=== PATIENT | male | born 1985 | race Caucasian/White ===

== ENCOUNTER 2024-06-18 07:01 | Emergency (ER) | payer BC, SELFPAY ==
[2024-06-18] VITALS (22 sets, daily range): BP systolic 135–168; BP diastolic 89–112; PULSE 83–106; RESP 12–25; TEMP 36.4–36.7; O2SAT 94–100
--- NOTE | ~2024-06-18 | CT_ITS ---
Clinical Indication: Hypertension, back pain, chest pain, dissection CT Scan of the Chest, Abdomen, and Pelvis with Contrast: Technique: Contiguous sections were acquired throughout the chest, abdomen, and pelvis after intraven ous administration of 100 cc of Omnipaque 350. Dose reduction technique was used on this scan by juli cardenasing automated exposure control and iterative reconstruction technique. The dose-length product (DL P) was 2015.81 mGy-cm. Findings: There is no evidence of any significant mediastinal, hilar or axillary lymphadenopathy. The mediastin al soft tissues appear normal. No aortic aneurysm or dissection seen. There is no evidence of pleural or pericardial effusion. The lungs are clear. No pulmonary nodules or infiltrates are noted. There is diffuse hepatic steatosis. The spleen, pancreas, gallbladder, adrenals and left kidney are w ithin normal limits. Status post right nephrectomy. No evidence of aortic aneurysm or dissection. No lymphadenopathy. No bowel obstruction or bowel wall thickening. There is no evidence to suggest acute appendicitis. Urinary bladder is unremarkable. No pelvic mass seen. No ascites. Bilateral L5 pars interarticularis defects are present, without significant subluxation. Impression: No acute abnormality. No aortic aneurysm or dissection. Diffuse hepatic steatosis. Bilateral L5 pars interarticularis defects. Status post right nephrectomy. Reviewed, dictated and finalized at location . Impression: No acute abnormality. No aortic aneurysm or dissection. Diffuse hepatic steatosis. Bilateral L5 pars interarticularis defects. Status post right nephrectomy.
--- NOTE | ~2024-06-18 | XR_ITS ---
EXAMINATION: XR chest 2V DATE: 06/18/2024 07:55 INDICATION: Midsternal chest pain radiating to the left arm TECHNIQUE: PA and lateral views of the chest were obtained. COMPARISON: Chest CT dated 06/18/2024 FINDINGS: The lungs are clear with no focal airspace opacities, pulmonary edema, pleural effusion or pneumothor ax. The cardiomediastinal silhouette is normal. Visualized bones and soft tissues are unremarkable. IMPRESSION: 1. No acute cardiopulmonary disease. Reviewed, dictated and finalized at location B.
--- NOTE | 2024-06-18 07:03 | ECG_ITS ---
Test Date: 2024-06-18 07:11:06 Measurements Intervals [place] Rate: 101 P: -21 MN: 151 QRS: 105 QRSD: 110 T: -31 QT: 329 QTc: 426 Interpretive Statements SINUS TACHYCARDIA RIGHT AXIS DEVIATION DELAYED PRECORDIAL R/S TRANSITION BORDERLINE ST-T WAVE ABNORMALITY- INFERIOR LEADS BASELINE ARTIFACT- I, III, AVR, AVL, AVF, V1, V6 BORDERLINE ECG No previous ECG available for comparison Electronically Signed On 06-18-2024 08:08:41 CDT by Dayo Penaloza D.O.
[2024-06-18] MEDS: ASPIRIN 81 MG CHEWABLE TABLET 324 MG PO (07:12)
[2024-06-18 07:23] LABS: Basophils Absolute Auto 0.1 K/mm3 (0.0-0.1); Basophils Percent Auto 0.9 % (0.2-1.2); Eosinophils Absolute Auto 0.2 K/mm3 (0-0.3); Eosinophils Percent Auto 2.8 % (0-4.4); Hematocrit 48.3 % (42.0-52.0); Hemoglobin 16.6 g/dL (14.0-18.0); Immature Granulocyte Absolute 0.03 K/mm3 (0.00-0.031); Immature Granulocyte Percent A 0.4 % (0-0.5); Lymphocytes Absolute Auto 2.62 K/mm3 (0.9-3.2); Lymphocytes Percent Auto 37.2 % (18.3-44.2); Mean Corpuscular HGB Conc 34.4 g/dl (32-36); Mean Corpuscular Hemoglobin 32.1 pg (26-34); Mean Corpuscular Volume 93.4 fl (80-100); Mean Platelet Volume 8.9 fl (7.4-10.4); Monocytes Absolute Auto 0.8 K/mm3 (0.1-0.6); Monocytes Percent Auto 10.7 % (2.6-8.5); Neutrophils Absolute Auto 3.4 K/mm3 (1.3-6.7); Platelet Count Result 280 k/mm3 (150-375); Red Blood Count 5.17 M/mm3 (4.6-6.20); Red Cell Distribution Width 12.3 % (11.5-14.5)
--- NOTE | 2024-06-18 07:30 | ED.CHESTPAIN ---
HPI - Chest Pain General Chief Complaint: Chest Pain Stated Complaint: Chest pain, lightheaded, left arm pain Time Seen by Provider: 06/18/24 07:05 History of Present Illness HPI narrative: 38-year-old male presented to the emergency department for evaluation for some back pain that radiated into his left arm chest and jaw. Patient states yesterday he was doing a lot of work on the house such as replacing ceiling fans and baseboards. Patient states that he did not have any exertional chest pain or shortness of breath with this yesterday. Patient states while he was lying in bed he had onset of lightheaded dizziness and the onset of the pain that radiated is referred back to his chest to his arm and jaw. Patient is not diabetic denies any prior history of high cholesterol hypertension. Patient states he has had a negative stress test. Patient denies any prior history of IA. Related Data Allergies Allergy/AdvReac Type Severity Reaction Status Date / Time morphine Allergy Severe Anaphylactic Verified 06/18/24 07:10 Shock Review of Systems Review of Systems: All systems reviewed & are unremarkable except as noted in HPI and below Exam Narrative: APPEARANCE: Well appearing, no pain, no distress, well-nourished. HEAD: normocephalic, atraumatic. EYES: PERRLA/EOMI, conjunctivae clear. NOSE: Normal no drainage EARS:TMS clear with good light reflex. THROAT: Pharynx clear, no exudate. NECK: Supple. No adenopathy, no masses. RESPIRATORY: Airway patent, respirations nonlabored. Clear to auscultation bilaterally, no rales, rhonchi, wheezing. CARDIOVASCULAR: Regular rate and rhythm without murmurs rubs or gallops. ABDOMINAL: Soft, nontender, nondistended, normal bowel sounds MUSCULOSKELETAL: Moves all extremities. Strength/ROM intact, No edema, No calf tenderness. NEURO: Alert. Cranial nerves II through XII intact. Good gait. Good coordination SKIN: Warm, dry. Normal Color Course Course Emergency Course: Patient was discharged home with instructions for close outpatient follow-up Vital Signs Vital signs: Vital Signs Temperature 97.6 F 06/18/24 07:07 Pulse Rate 106 H 06/18/24 07:07 Respiratory Rate 18 06/18/24 07:07 Blood Pressure 168/104 H 06/18/24 07:07 Pulse Oximetry 99 06/18/24 07:07 Temperature 98.1 F 06/18/24 10:56 Pulse Rate 88 06/18/24 10:56 Respiratory Rate 20 06/18/24 10:56 Blood Pressure 139/95 H 06/18/24 10:56 Pulse Oximetry 100 06/18/24 10:56 Oxygen Delivery Room Air 06/18/24 07:16 MDM - Chest Pain MDM Narrative Medical decision making narrative: A 38-year-old male presents to the emergency department for evaluation for back pain. Patient had negative serial troponins negative serial EKG. CTA showed no evidence of dissection. Low concern for ACS. Patient was updated on the results of his workup. Patient was comfortable the plan for discharge and close follow-up. Differential Diagnosis Differential diagnosis: Likely fracture of rib, pneumothorax, unstable angina pectoris, atypical chest pain, st elevation myocardial infarction, costochondritis, chest pain and biliary colic Lab Data Attestation: I reviewed the patient's lab results. 06/18/24 07:15 06/18/24 07:15 Labs: Lab Results 06/18/24 06/18/24 Range/Units 07:15 10:01 WBC 7.0 (4.5-10.0) K/mm3 RBC 5.17 (4.6-6.20) M/mm3 Hgb 16.6 (14.0-18.0) g/dL Hct 48.3 (42.0-52.0) % MCV 93.4 (80-100) fl MCH 32.1 (26-34) pg MCHC 34.4 (32-36) g/dl RDW 12.3 (11.5-14.5) % Plt Count 280 (150-375) k/mm3 MPV 8.9 (7.4-10.4) fl Immature Gran % (Auto) 0.4 (0-0.5) % Neut % (Auto) 48.0 (45.5-73.1) % Lymph % (Auto) 37.2 (18.3-44.2) % Heard % (Auto) 10.7 H (2.6-8.5) % Eos % (Auto) 2.8 (0-4.4) % Baso % (Auto) 0.9 (0.2-1.2) % Lymph # (Auto) 2.62 (0.9-3.2) K/mm3 Heard # (Auto) 0.8 H (0.1-0.6) K/mm3 Eos # (Auto) 0.2 (0-0.3) K/mm
[2024-06-18 07:34] LABS: Alanine Aminotransferase 174 U/L (6-50); Albumin Level 4.9 g/dL (3.5-5.1); Alkaline Phosphatase 67 U/L (38-126); Anion Gap 13 mmol/L (4-12); Aspartate Amino Transferase 131 U/L (17-59); Bilirubin,Total 0.9 mg/dL (0.2-1.3); Blood Urea Nitrogen 8 mg/dL (9-20); Carbon Dioxide 24 mmol/L (22-30); Chloride 100 mmol/L (98-107); Estimated CRCL calculation 127 ml/min; Estimated Glomerular Filt Rate > 60; Glucose 127 mg/dL (65-110); Lipase 102 U/L (23-300); Potassium 4.2 mmol/L (3.4-5.0); Prothrombin Time 13.5 Seconds (11.1-14.7); Sodium 137 mmol/L (137-145)
[2024-06-18 07:35] LABS: Partial Thromboplastin Time 28.5 Seconds (22.3-36.8)
[2024-06-18 07:46] LABS: Troponin I < 0.012 ng/mL (0.000-0.034)
[2024-06-18] MEDS: HYDROmorphone HCL INJ (*CRX) 1 MG/ML SYR 0.5 MG IV PUSH (07:54)
[2024-06-18] MEDS: CYCLOBENZAPRINE HCL 10 MG TABLET PO (07:55)
--- NOTE | 2024-06-18 09:51 | ECG_ITS ---
Test Date: 2024-06-18 09:55:33 Measurements Intervals [place] Rate: 82 P: 22 [place]: 165 QRS: 30 QRSD: 93 T: 24 QT: 344 QTc: 404 Interpretive Statements SINUS RHYTHM DELAYED PRECORDIAL R/S TRANSITION BASELINE ARTIFACT- I, III, AVL BORDERLINE ECG Compared to ECG 06/18/2024 07:11:06 HEART RATE HAS DECREASED Electronically Signed On 06-18-2024 10:29:19 CDT by Dayo Penaloza D.O.
[2024-06-18 10:32] LABS: Troponin I < 0.012 ng/mL (0.000-0.034)
== END 2024-06-18 11:00 | disposition home or self-care (01) ==
PROVIDERS: Emergency Provider Emergency Medicine; PCP Registered Nurse
DX: R07.89 Other chest pain (principal); Z90.5 Acquired absence of kidney; K76.0 Fatty (change of) liver, not elsewhere classified; R00.0 Tachycardia, unspecified; R94.31 Abnormal electrocardiogram [ECG] [EKG]
CPT/HCPCS: 36415; 71046; 71275; 74174; 80053; 83690; 84484; 85025; 85610; 85730; 93005; 96374; 99284; A9270; J1170; Q9967